=== PATIENT | female | born 1975 | race Caucasian/White ===

== ENCOUNTER 2021-08-04 15:56 | Outpatient (CLI) | payer BC ==
[2021-08-04 17:09] LABS: Hemoglobin 15.3 g/dL (12.0-15.5); Mean Corpuscular HGB CONC 33.2 g/dL (32.0-36.0); Mean Corpuscular Hemoglobin 28.8 pg (27.0-33.0); Mean Corpuscular Volume 86.7 fl (81.6-98.3); Mean Platelet Volume 8.7 fl (7.4-10.4); Platelet Count 550 10x3/uL (150-450); RBC Distribution Width 14.6 % (11.5-14.5); Red Blood Cell (RBC) Count 5.32 10x6/uL (3.90-5.03)
[2021-08-04 17:31] LABS: Anion Gap 15 mmol/L (10-20); BUN (Urea Nitrogen) 14 mg/dL (7.0-18.7); Calc. Creatinine Clearance 0 mL/min (70-130); Calcium 10.7 mg/dL (7.8-10.44); Carbon Dioxide 26 mmol/L (22-29); Chloride 103 mmol/L (98-107); Glucose 87 mg/dL (70-105); Potassium 4.4 mmol/L (3.5-5.1); Sodium 140 mmol/L (136-145)
[2021-08-04 17:41] LABS: INR-International Normal Ratio 0.9; PTT 23.3 sec (22.0-33.0)
[2021-08-05 02:16] LABS: SARS-CoV-2 PCR by NAA Not Detected (NotDetected)
== END 2021-08-04 15:57 | disposition home or self-care (01) ==
LOC: LABBT 15:56
PROVIDERS: ATTEND Internal Medicine Cardiovascular Disease
DX: Z01.812 Encounter for preprocedural laboratory examination (principal); I47.1 Supraventricular tachycardia; Z20.822 Contact with and (suspected) exposure to COVID-19
CPT/HCPCS: 80048; 85027; 85610; 85730; U0003; U0005

== ENCOUNTER 2021-08-09 11:00 | Day surgery (SDC) | payer BC ==
[2021-08-05 11:38] VITALS: BMI 32.9
[2021-08-09] MEDS ORDERED: Ketorolac Tromethamine 30 MG/ML VIAL ONE (13:06)
[2021-08-09] MEDS ORDERED: Isoproterenol 0.2 MG/1 ML AMP ONE (13:40)
[2021-08-09] MEDS ORDERED: Heparin 10,000 UNITS/ 10 ML VIAL ONE (13:40)
[2021-08-09] MEDS ORDERED: Lidocaine 1% (PF) 30 ML VIAL ONE (13:40)
[2021-08-09] MEDS ORDERED: Midazolam HCl 2 mg/2 ml Vial ONE (14:26)
[2021-08-09] MEDS ORDERED: Enoxaparin Sodium 30 MG/0.3 ML SYRINGE ONE (14:26)
[2021-08-09] MEDS ORDERED: Fentanyl 100 MCG/2 ML VIAL ONE (14:27)
[2021-08-09] MEDS ORDERED: PROPOFOL 200 MG/20 ML VIAL ONE (14:28)
[2021-08-09] MEDS ORDERED: Ondansetron PF 4 MG/2 ML Vial ONE (14:28)
[2021-08-09] MEDS ORDERED: Propofol 500 MG/50 ML VIAL ONE (14:51)
== END 2021-08-09 18:35 | disposition home or self-care (01) ==
LOC: CCL 11:00
PROVIDERS: ATTEND Internal Medicine Cardiovascular Disease
PROC: 4A023FZ Measurement of Cardiac Rhythm, Percutaneous Approach (ICD-10-PCS; principal; 2021-08-09)
PROC: 4A0234Z Measurement of Cardiac Electrical Activity, Percutaneous Approach (ICD-10-PCS; principal; 2021-08-09)
PROC: 02K83ZZ Map Conduction Mechanism, Percutaneous Approach (ICD-10-PCS; principal; 2021-08-09)
DX: I47.1 Supraventricular tachycardia (principal); R00.2 Palpitations; G43.909 Migraine, unspecified, not intractable, without status migrainosus; E78.5 Hyperlipidemia, unspecified; K21.9 Gastro-esophageal reflux disease without esophagitis; F17.210 Nicotine dependence, cigarettes, uncomplicated; Z79.899 Other long term (current) drug therapy; Z88.5 Allergy status to narcotic agent; Z98.84 Bariatric surgery status
CPT/HCPCS: 93613; 93621; 93623; C1730; C1732; J1644; J1650; J1885; J2001; J2250; J2405; J2704; J3010

== ENCOUNTER 2021-08-17 08:36 | Day surgery (SDC) | payer BC ==
[2021-08-12 14:23] VITALS: BMI 32.5
[2021-08-17 09:47] VITALS: BP 142/98; TEMP 97.7
== END 2021-08-17 12:00 | disposition home or self-care (01) ==
LOC: CT 08:36
PROVIDERS: ATTEND Internal Medicine Hematology & Oncology
PROC: 07DR3ZX Extraction of Iliac Bone Marrow, Percutaneous Approach, Diagnostic (ICD-10-PCS; principal; 2021-08-17)
PROC: 079T3ZX Drainage of Bone Marrow, Percutaneous Approach, Diagnostic (ICD-10-PCS; principal; 2021-08-17)
DX: D75.1 Secondary polycythemia (principal); R00.0 Tachycardia, unspecified; D72.829 Elevated white blood cell count, unspecified; D75.838 Other thrombocytosis; E53.8 Deficiency of other specified B group vitamins; F17.210 Nicotine dependence, cigarettes, uncomplicated; Z79.899 Other long term (current) drug therapy; Z88.5 Allergy status to narcotic agent; Z98.84 Bariatric surgery status
CPT/HCPCS: 20225; 77012; 88184; 88237; 88305